=== PATIENT | male | born 1950 | race African-American/Black ===

== ENCOUNTER 2021-08-21 23:07 | Inpatient (IN) | payer MEDICARE, OTHER ==
[~2021-08-21] VITALS: Ht 182.9 cm; Wt 139.7 kg
[2021-08-21 23:26] LABS: GLUCOSE,POINT OF CARE 106 MG/DL (70-110)
[2021-08-21 23:42] LABS: COVID AG,FIA SOURCE NASOPHARYNGEAL
[2021-08-21 23:45] LABS: BASOPHILS % (AUTO) 0.9 % (0.0-2.0); EOSINOPHILS % (AUTO) 2.8 % (1.0-6.0); HEMATOCRIT 43.1 % (41-53); HEMOGLOBIN 14.3 g/dL (13.5-17.5); LYMPHOCYTES # (AUTO) 3.7 K/uL (1.0-4.8); LYMPHOCYTES % (AUTO) 56.3 % (22.0-44.0); MEAN CORPUSCULAR HGB CONC 33.1 G/dL (31.0-37.0); MEAN CORPUSCULAR VOLUME 97 fL (80-100); MONOCYTES # (AUTO) 0.6 K/uL (0.1-1.0); MONOCYTES % (AUTO) 9.9 % (2.0-9.0); NEUTROPHILS % (AUTO) 30.1 % (40.0-70.0); PLATELET COUNT (AUTO) 218 K/uL (150-450); RED BLOOD CELL COUNT(AUTO) 4.46 MIL/uL (4.50-5.90); RED CELL DISTRIBUTION WIDTH 13.1 % (11.5-14.5)
[2021-08-21 23:55] LABS: CALCIUM, TOTAL 10.8 mg/dL (8.8-10.5); CREATININE 1.63 mg/dL (0.60-1.30); POTASSIUM 3.9 mmol/L (3.5-5.1)
[2021-08-22 00:01] LABS: ALBUMIN 3.7 g/dL (3.4-5.0); BILIRUBIN,TOTAL 1.2 mg/dL (0.1-1.0); TOTAL PROTEIN, SERUM 6.7 g/dL (6.4-8.2)
[2021-08-22] MEDS ORDERED: KETOROLAC TROMETHAMINE 30 MG/ML VIAL IVP ONE (00:15)
[2021-08-22] MEDS ORDERED: ONDANSETRON HCL 4 MG/2 ML VIAL IVP PRN ×2 (00:45→01:15)
[2021-08-22] MEDS ORDERED: ACETAMINOPHEN 325 MG TABLET PO PRN ×2 (00:45→01:15)
[2021-08-22] MEDS ORDERED: GABA-1181 PO (01:11)
[2021-08-22] MEDS ORDERED: DOCU-350 PO (01:11)
[2021-08-22] MEDS ORDERED: ALBU8HFA IH (01:11)
[2021-08-22] MEDS ORDERED: FLUT16H NASAL (01:11)
[2021-08-22] MEDS ORDERED: LIDO35.44 TP (01:11)
[2021-08-22] MEDS ORDERED: CHOL-35 PO (01:11)
[2021-08-22] MEDS ORDERED: ATOR40TA28 PO (01:11)
[2021-08-22 02:20] VITALS: BP 130/80
[2021-08-22] MEDS ORDERED: ALBUTEROL SULFATE HFA 90 MCG/PUFF 8 GM INHALER IH PRN (06:15)
[2021-08-22] MEDS: GABAPENTIN 300 MG CAPSULE PO SCH ×2 (08:08→20:27)
[2021-08-22] MEDS: DOCUSATE SODIUM 250 MG CAPSULE PO SCH (08:09)
[2021-08-22] MEDS: HEPARIN SODIUM,PORCINE 5,000 UNITS/ML VIAL SQ SCH ×2 (08:09→16:00)
[2021-08-22] MEDS: CHOLECALCIFEROL (VIT D3) 1,000 UNITS [25 MCG] TABLET PO SCH (08:09)
[2021-08-22] MEDS: FLUTICASONE PROPIONATE 50 MCG/SPRAY 16 GM NASAL SPRAY NASAL SCH (08:12)
[2021-08-22] MEDS ORDERED: ATROPINE SULFATE 0.1 MG/ML 10 ML SYRINGE IVP PRN ×2 (08:15→08:30)
[2021-08-22] MEDS ORDERED: SODIUM CHLORIDE 0.45% 1,000 ML IV ONE (08:30)
[2021-08-22 09:37] VITALS: BP 138/88
[2021-08-22] MEDS ORDERED: SODIUM CHLORIDE 0.9% 1,000 ML IV ONE (13:15)
[2021-08-22 13:44] LABS: ANION GAP 7 mmol/L (8-16); CALCIUM, TOTAL 10.4 mg/dL (8.8-10.5); CARBON DIOXIDE 28 mmol/L (22-29); CHLORIDE 105 mmol/L (98-107); CREATININE 1.06 mg/dL (0.60-1.30); GLUCOSE,RANDOM 123 mg/dL (70-110); POTASSIUM 3.9 mmol/L (3.5-5.1); SODIUM SERUM 140 mmol/L (136-145); UREA NITROGEN, BLOOD 19 mg/dL (7-18)
[2021-08-22 13:45] LABS: GLOMERULAR FILTR. RATE CALC > 60 mL/min (>60)
[2021-08-22 13:59] LABS: THYROID STIMULATING HORMONE 0.56 uIU/mL (0.36-3.74)
[2021-08-22 17:21] VITALS: BP 132/82
[2021-08-22 20:52] VITALS: BP 125/86
[2021-08-22] MEDS ORDERED: ATORVASTATIN CALCIUM 40 MG TABLET PO SCH (21:00)
[2021-08-22 23:02] LABS: CREATININE,URINE RANDOM 186.5 mg/dL (30.0-125.0)
[2021-08-22 23:06] LABS: AMPHET/METH SCREEN,URINE NEGATIVE (NEGATIVE); BARBITURATE SCREEN, URINE NEGATIVE (NEGATIVE); BENZODIAZEPINES SCREEN,URINE NEGATIVE (NEGATIVE); CANNABINOID SCREEN,URINE POSITIVE (NEGATIVE); COCAINE SCREEN,URINE NEGATIVE (NEGATIVE); METHADONE SCREEN, URINE NEGATIVE (NEGATIVE); OPIATE SCREEN,URINE NEGATIVE (NEGATIVE)
[2021-08-22 23:08] LABS: PHENCYCLIDINE SCREEN,URINE NEGATIVE (NEGATIVE)
[2021-08-22 23:55] VITALS: BP 141/86
[2021-08-23 03:33] VITALS: BP 127/72
[2021-08-23 07:35] LABS: ANION GAP 4 mmol/L (8-16); CALCIUM, TOTAL 10.4 mg/dL (8.8-10.5); CARBON DIOXIDE 31 mmol/L (22-29); CHLORIDE 106 mmol/L (98-107); CREATININE 0.84 mg/dL (0.60-1.30); GLUCOSE,RANDOM 100 mg/dL (70-110); POTASSIUM 3.6 mmol/L (3.5-5.1); SODIUM SERUM 141 mmol/L (136-145); UREA NITROGEN, BLOOD 14 mg/dL (7-18)
[2021-08-23 07:36] VITALS: BP 135/92
[2021-08-23 07:52] LABS: GLOMERULAR FILTR. RATE CALC > 60 mL/min (>60)
[2021-08-23] MEDS: HEPARIN SODIUM,PORCINE 5,000 UNITS/ML VIAL SQ SCH ×3 (08:00→08:38)
[2021-08-23] MEDS: DOCUSATE SODIUM 250 MG CAPSULE PO SCH (08:38)
[2021-08-23] MEDS: GABAPENTIN 300 MG CAPSULE PO SCH (08:38)
[2021-08-23] MEDS: CHOLECALCIFEROL (VIT D3) 1,000 UNITS [25 MCG] TABLET PO SCH (08:38)
[2021-08-23] MEDS: FLUTICASONE PROPIONATE 50 MCG/SPRAY 16 GM NASAL SPRAY NASAL SCH (08:39)
[2021-08-23 11:23] VITALS: BP 150/95
== END 2021-08-23 15:10 | disposition home or self-care (01) | DRG 73 ==
LOC: EMS 23:10 → 5N 08-22 01:00
PROVIDERS: ADMIT Internal Medicine; ATTEND Internal Medicine
DX: G90.8 Other disorders of autonomic nervous system (principal); G93.41 Metabolic encephalopathy; Z68.41 Body mass index [BMI] 40.0-44.9, adult; N17.9 Acute kidney failure, unspecified; I45.2 Bifascicular block; R00.1 Bradycardia, unspecified; E66.01 Morbid (severe) obesity due to excess calories; E86.0 Dehydration; I12.9 Hypertensive chronic kidney disease with stage 1 through stage 4 chronic kidney disease, or unspecified chronic kidney disease; Z20.822 Contact with and (suspected) exposure to COVID-19; N18.9 Chronic kidney disease, unspecified; Z85.038 Personal history of other malignant neoplasm of large intestine; Z91.041 Radiographic dye allergy status
CPT/HCPCS: 70450; 71045; 80048; 80053; 80307; 82330; 82570; 82962; 83735; 83880; 84300; 84443; 84484; 85025; 85379; 93005; 93306; 99285; J0461; J1644; J1885; 36415-L1; 36415-TC